=== PATIENT | male | born 1985 | race Caucasian/White ===

== ENCOUNTER 2024-05-20 16:28 | Emergency (ER) | payer OTHER ==
[~2024-05-20] VITALS: Ht 172.7 cm; Wt 68.0 kg
[2024-05-20] MEDS ORDERED: SILVER SULFADIAZINE 25 GM TUBE T ONE (16:50)
== END 2024-05-20 17:19 | disposition home or self-care (01) ==
LOC: ED 16:28
DX: T23.231A Burn of second degree of multiple right fingers (nail), not including thumb, initial encounter (principal); Z88.1 Allergy status to other antibiotic agents; X12.XXXA Contact with other hot fluids, initial encounter; Y93.89 Activity, other specified; Y92.89 Other specified places as the place of occurrence of the external cause; Y99.8 Other external cause status